=== PATIENT | male | born 1945 | race Caucasian/White ===

== ENCOUNTER 2020-03-09 13:06 | Outpatient (CLI) | payer MEDICARE, MEDICAID | END 2020-03-09 13:07 | disposition home or self-care (01) | LOC: LAB 13:06 | PROVIDERS: ATTEND Internal Medicine Endocrinology, Diabetes & Metabolism | DX: R74.8 Abnormal levels of other serum enzymes (principal) | CPT/HCPCS: 36415; 82977 ==

== ENCOUNTER 2020-04-15 13:02 | Outpatient (CLI) | payer MEDICARE, MEDICAID ==
[2020-04-15 13:16] LABS: HGB - HEMOGLOBIN 10.9 g/dL (14.0-18.0); MEAN CORPUSCULAR HEMOGLOBIN 30.9 pg (27.0-31.0); MEAN CORPUSCULAR HGB CONC 31.2 g/dL (32.0-36.0); MEAN CORPUSCULAR VOLUME 98.9 fL (80.0-94.0); MEAN PLATELET VOLUME 11.1 fL (7.4-11.4); RED BLOOD COUNT 3.53 10^6/uL (4.70-6.10); RED CELL DISTRIBUTION WIDTH 14.2 % (12.0-15.0); WHITE BLOOD COUNT 6.4 x10^3/uL (4.8-10.8)
[2020-04-15 13:31] LABS: CALCIUM 9.2 mg/dL (8.5-10.3); CREATININE 1.9 mg/dL (0.6-1.2); PHOSPHORUS 4.3 mg/dL (2.5-4.6)
== END 2020-04-15 13:03 | disposition home or self-care (01) ==
LOC: LAB 13:02
PROVIDERS: ATTEND Internal Medicine Nephrology
DX: D70.9 Neutropenia, unspecified (principal); E83.30 Disorder of phosphorus metabolism, unspecified; N25.81 Secondary hyperparathyroidism of renal origin; N05.9 Unspecified nephritic syndrome with unspecified morphologic changes
CPT/HCPCS: 36415; 80048; 83970; 84100; 85027

== ENCOUNTER 2021-01-13 13:50 | Outpatient (CLI) | payer MEDICARE, MEDICAID ==
[2021-01-13 18:12] LABS: ALBUMIN 3.6 g/dL (3.2-5.5); ALBUMIN/GLOBULIN RATIO 0.9 (1.0-2.2); CREATININE 1.9 mg/dL (0.6-1.2); POTASSIUM 4.9 mmol/L (3.5-5.0); TOTAL PROTEIN 7.4 g/dL (6.7-8.2)
== END 2021-01-13 13:51 | disposition home or self-care (01) ==
LOC: LAB.N 13:50
PROVIDERS: ATTEND Internal Medicine Nephrology
DX: N05.9 Unspecified nephritic syndrome with unspecified morphologic changes (principal)
CPT/HCPCS: 36415; 80048; 80053

== ENCOUNTER 2021-02-16 14:47 | Outpatient (CLI) | payer MEDICARE, MEDICAID ==
--- NOTE | 2021-02-16 16:05 | XRAY Report ---
PROCEDURE: Wrist 4 View LT INDICATIONS: L WRIST PX TECHNIQUE: 4 views of the wrist were acquired. COMPARISON: None. FINDINGS: No acute fracture. Scattered subchondral sclerosis and spurring. First CMC and triscaphe joint degen eration, mild to moderate. Soft tissues: No suspicious soft tissue calcifications. Scattered vascular calcifications are noted. IMPRESSION: Mild to moderate osteoarthritis as above. If the patient's pain or other symptoms persist, consider f urther evaluation with MRI. Reviewed by: Shawn Campos MD on 02/16/2021 4:03 PM PDT Approved by: Shawn Campos MD on 02/16/2021 4:03 PM PDT Station ID: [id number]
== END 2021-02-16 23:59 | disposition home or self-care (01) ==
LOC: DI.N 14:47
PROVIDERS: ATTEND Family Medicine
DX: M25.532 Pain in left wrist (principal); M19.032 Primary osteoarthritis, left wrist

== ENCOUNTER 2021-03-24 10:38 | Outpatient (CLI) | payer MEDICARE, MEDICAID ==
[2021-03-24 10:57] LABS: HCT - HEMATOCRIT 32.7 % (42.0-52.0); HGB - HEMOGLOBIN 10.5 g/dL (14.0-18.0); MEAN CORPUSCULAR HEMOGLOBIN 29.8 pg (27.0-31.0); MEAN CORPUSCULAR HGB CONC 32.1 g/dL (32.0-36.0); MEAN CORPUSCULAR VOLUME 92.9 fL (80.0-94.0); MEAN PLATELET VOLUME 10.2 fL (7.4-11.4); RED BLOOD COUNT 3.52 10^6/uL (4.70-6.10); RED CELL DISTRIBUTION WIDTH 16.9 % (12.0-15.0); WHITE BLOOD COUNT 7.7 x10^3/uL (4.8-10.8)
[2021-03-24 11:17] LABS: CALCIUM 9.4 mg/dL (8.5-10.3)
== END 2021-03-24 10:39 | disposition home or self-care (01) ==
LOC: LAB 10:38
PROVIDERS: ATTEND Internal Medicine Nephrology
DX: N05.9 Unspecified nephritic syndrome with unspecified morphologic changes (principal); D70.9 Neutropenia, unspecified; D63.1 Anemia in chronic kidney disease
CPT/HCPCS: 36415; 80048; 85027

== ENCOUNTER 2021-04-20 14:12 | Outpatient (CLI) | payer MEDICARE, MEDICAID ==
[2021-04-20 18:12] LABS: BASOPHILS % (AUTO) 0.7 %; EOSINOPHILS # (AUTO) 0.3 10^3/uL (0.0-0.7); EOSINOPHILS % (AUTO) 5.1 %; HCT - HEMATOCRIT 31.2 % (42.0-52.0); HGB - HEMOGLOBIN 9.6 g/dL (14.0-18.0); LYMPHOCYTES # (AUTO) 0.5 10^3/uL (1.5-3.5); LYMPHOCYTES % (AUTO) 9.4 %; MEAN CORPUSCULAR HEMOGLOBIN 29.4 pg (27.0-31.0); MEAN CORPUSCULAR HGB CONC 30.8 g/dL (32.0-36.0); MEAN CORPUSCULAR VOLUME 95.7 fL (80.0-94.0); MEAN PLATELET VOLUME 12.1 fL (7.4-11.4); MONOCYTES # (AUTO) 0.5 10^3/uL (0.0-1.0); MONOCYTES % (AUTO) 9.5 %; NEUTROPHILS # (AUTO) 4.2 10^3/uL (1.5-6.6); NEUTROPHILS % (AUTO) 74.9 %; PLT - PLATELET COUNT 174 10^3/uL (130-450); RED BLOOD COUNT 3.26 10^6/uL (4.70-6.10); RED CELL DISTRIBUTION WIDTH 15.7 % (12.0-15.0); WHITE BLOOD COUNT 5.7 x10^3/uL (4.8-10.8)
[2021-04-20 18:59] LABS: CREATININE 2.3 mg/dL (0.6-1.2)
== END 2021-04-20 14:13 | disposition home or self-care (01) ==
LOC: LAB.N 14:12
PROVIDERS: ATTEND Internal Medicine Nephrology
DX: D70.9 Neutropenia, unspecified (principal); D63.1 Anemia in chronic kidney disease; N05.9 Unspecified nephritic syndrome with unspecified morphologic changes; D50.0 Iron deficiency anemia secondary to blood loss (chronic)
CPT/HCPCS: 36415; 82565; 82728; 83540; 84466; 85025

== ENCOUNTER 2021-05-10 10:41 | Outpatient (CLI) | payer MEDICARE, MEDICAID ==
[2021-05-10] MEDS ORDERED: IOVERSOL 320 50 ML VIAL ONE (10:59)
[2021-05-10] MEDS ORDERED: IOVERSOL 320 50 ML VIAL PO ONE (12:09)
--- NOTE | 2021-05-10 13:56 | CT Report ---
PROCEDURE: Abdomen/Pelvis WO INDICATIONS: ABDOMINAL HERNIA TECHNIQUE: Noncontrast 5 mm thick sections acquired from the diaphragms to the symphysis. 5 mm coronal and sagi ttal reformats were then performed. For radiation dose reduction, the following was used: automated exposure control, adjustment of mA and/or kV according to patient size. COMPARISON: None. FINDINGS: Image quality: Excellent. ABDOMEN: Lung bases: Lung bases are clear. Four-chamber cardiomegaly. Coronary artery calcifications. Solid organs: Liver and spleen are normal in size. Gallbladder is unremarkable Pancreas is normal in contours. No adrenal nodules. Kidneys are normal in size, without hydronephrosis or nephrolithia sis. 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 Peritoneum and bowel: Unenhanced bowel loops demonstrate normal wall thickness and caliber. No free fluid or air. Incidental note is made of the presence of interposition of the colon between the abd ominal wall and liver. Nodes and vessels: No retroperitoneal or mesenteric adenopathy by size criteria. Aorta and inferior vena cava are normal in caliber. Miscellaneous: No ventral hernias. PELVIS: Genitourinary: Bladder wall thickness is normal. Prostate is enlarged. Miscellaneous: Large bilateral inguinal hernias, left greater than right. Left inguinal hernia contai ns nonobstructed colon. The right inguinal hernia contains fat. Penile prosthesis. Bones: No suspicious bony lesions. No vertebral body compression fractures. Lumbar degenerative ch ruth. Severe canal stenosis at L4-L5. IMPRESSION: 1. Large bilateral inguinal hernias, left greater than right. Left inguinal hernia contains colon. Th e right inguinal hernia is fat-containing. 2. Four-chamber cardiomegaly, coronary artery calcifications. 3. Enlarged prostate. 4. Severe canal stenosis at L4-L5. Reviewed by: Bernardo Casper MD on 05/10/2021 1:54 PM PST Approved by: Bernardo Casper MD on 05/10/2021 1:54 PM PST Station ID: [id number]
== END 2021-05-10 10:42 | disposition home or self-care (01) ==
LOC: DI 10:41
PROVIDERS: ATTEND Internal Medicine Nephrology
DX: K40.20 Bilateral inguinal hernia, without obstruction or gangrene, not specified as recurrent (principal); I25.10 Atherosclerotic heart disease of native coronary artery without angina pectoris; N40.0 Benign prostatic hyperplasia without lower urinary tract symptoms; M48.061 Spinal stenosis, lumbar region without neurogenic claudication

== ENCOUNTER 2021-09-08 13:28 | Outpatient (CLI) | payer MEDICARE, MEDICAID ==
[2021-09-08 18:22] LABS: HCT - HEMATOCRIT 31.4 % (42.0-52.0); HGB - HEMOGLOBIN 9.8 g/dL (14.0-18.0); MEAN CORPUSCULAR HEMOGLOBIN 29.3 pg (27.0-31.0); MEAN CORPUSCULAR HGB CONC 31.2 g/dL (32.0-36.0); MEAN CORPUSCULAR VOLUME 93.7 fL (80.0-94.0); MEAN PLATELET VOLUME 12.9 fL (7.4-11.4); RED BLOOD COUNT 3.35 10^6/uL (4.70-6.10); RED CELL DISTRIBUTION WIDTH 16.1 % (12.0-15.0)
== END 2021-09-08 13:29 | disposition home or self-care (01) ==
LOC: LAB.N 13:28
PROVIDERS: ATTEND Internal Medicine Nephrology
DX: N18.4 Chronic kidney disease, stage 4 (severe) (principal); D63.1 Anemia in chronic kidney disease
CPT/HCPCS: 36415; 80048; 85027

== ENCOUNTER 2021-09-22 14:19 | Outpatient (CLI) | payer MEDICARE, MEDICAID ==
--- NOTE | 2021-09-22 15:43 | XRAY Report ---
PROCEDURE: Chest 2 View X-Ray INDICATIONS: PRODUCTIVE COUGH TECHNIQUE: 2 view(s) of the chest. COMPARISON: None. FINDINGS: Surgical changes and devices: None. Lungs and pleura: There is trace blunting of the costophrenic angles. No consolidations. Mediastinum: Mediastinal contours are normal. Heart size is enlarged. Bones and chest wall: No suspicious bony abnormalities. Soft tissues appear unremarkable. IMPRESSION: Cardiomegaly without consolidation. Trace scarring versus effusions of the costophrenic angles bilaterally. Reviewed by: Sneha Whelan MD on 09/22/2021 3:42 PM PDT Approved by: Sneha Whelan MD on 09/22/2021 3:42 PM PDT Station ID: [id number]
== END 2021-09-22 23:59 | disposition home or self-care (01) ==
LOC: DI.N 14:19
PROVIDERS: ATTEND Family Medicine
DX: R05.9 Cough, unspecified (principal); I51.7 Cardiomegaly; R91.8 Other nonspecific abnormal finding of lung field

== ENCOUNTER 2021-09-22 14:56 | Outpatient (CLI) | payer MEDICARE, MEDICAID | END 2021-09-22 14:57 | disposition critical access hospital (66) | LOC: EMS 14:56 | DX: J18.9 Pneumonia, unspecified organism (principal); E11.65 Type 2 diabetes mellitus with hyperglycemia | CPT/HCPCS: A0425; A0429 ==

== ENCOUNTER 2021-09-22 15:19 | Emergency (ER) | payer MEDICARE, MEDICAID ==
--- OUTSIDE RECORDS SUMMARY | 2021-09-22 15:33 | EXTERNAL MEDICAL SUMMARY RPT | Continuity of Care Document ---
:1945 Author Organization [facility] Address [address] [place] [address] Phone Care Team Providers Name Role Phone M.D. Unavailable Unavailable Allergies No information. Encounters No information. Medications No information. Problems date description facility 20210922 Productive cough All 20210922 Other specified cough All 20210922 Other abnormal glucose All 20210922 Hyperglycemia, unspecified All 20210922 Hyperglycemia All 20210922 Cough All 20210922 CHEST 2 VIEW All Results test status date ordered by attending specimen jose rafael e blood_glucose_finger_s unknown 20210922 unknown unknown unknown tick blood_glucose_finger_s unknown 20210922 unknown unknown unknown tick facility observation status value reference units lab abnor mal line range code notes All blood_glucose unknown 535 unknown _[id number] unknow n unknown _finger_stick -7 All blood_glucose unknown 535 unknown _[id number] unknow n unknown _finger_stick Vital Signs date measurement value source 20210922 weight_standard 207 lb 20210922 weight_metric 93.89 kg 20210922 temperature_standard 98.7 F 20210922 temperature_metric 37.06 C 20210922 respiration_rate 18 /min 20210922 height_standard 70 in 20210922 height_metric 177.8 cm 20210922 heart_rate 89 /min 20210922 BP_systolic 132 mm[Hg] 20210922 BP_diastolic 84 mm[Hg] 20210922 BMI 29.81 kg/m2
--- NOTE | 2021-09-22 15:44 | ED Physician Documentation ---
PD HPI DYSPNEA - Stated complaint Stated Complaint: COUGH/WEKANESS - Chief complaint Chief Complaint: Resp - History obtained from History obtained from: Patient - Additional information Additional information: 76-year-old gentleman presents referred from urgent care for cough. His main complaint is actually itching. Says that he has been itching for years. Is worse in the mornings. Has tried a number of topical medications without relief. He also has a chronic cough which he thinks may be related to sleep apnea. States the cough became more hacking about 3 to 4 weeks ago and is nonproductive. Went to urgent care today where he was noted to have elevated blood sugars. He has a history of diabetes but is not currently treating his diabetes. Also had a chest x-ray which per reports the urgent care physician thought might be positive for right lower lobe infiltrate. Denies fevers or chills. He is chronically fatigued. Review of labs show that his blood sugars always elevated, and his renal function is slowly going downhill. He is followed by RUPERT Saunders the delivery stock clerk. Review of Systems Ten Systems: 10 systems reviewed and negative Constitutional: reports: Fatigue. denies: Fever, Chills Nose: denies: Rhinorrhea / runny nose, Congestion Throat: denies: Dental pain / toothache, Oral lesions / sores Cardiac: denies: Chest pain / pressure, Palpitations Respiratory: reports: Cough. denies: Dyspnea PD PAST MEDICAL HISTORY - Present Medications Home Medications: Ambulatory Orders Medication Instructions Recorded Confirmed Insulin Glargine [Lantus Solostar] 10 unit SUBQ DAILY #1 ahfu 09/22/21 - Allergies Allergies/Adverse Reactions: Allergies Allergy/AdvReac Type Severity Reaction Status Date / Time lisinopril Allergy Unknown Verified 09/22/21 15:31 Macrolide Antibiotics Allergy Unknown Verified 09/22/21 15:31 Macrolide Immunosuppressant Allergy Unknown Verified 09/22/21 15:31 metformin Allergy Unknown Verified 09/22/21 15:31 niacin Allergy Unknown Verified 09/22/21 15:31 rosuvastatin [From Crestor] Allergy Unknown Verified 09/22/21 15:31 tamsulosin [From Flomax] Allergy Unknown Verified 09/22/21 15:31 PD ED PE NORMAL - Vitals Vital signs reviewed: Yes - General General: Alert and oriented X 3, No acute distress - HEENT HEENT: PERRL, EOMI - Neck Neck: Supple, no meningeal sign, No bony TTP - Cardiac Cardiac: RRR, Other (4 out of 6 decrescendo holosystolic murmur heard best at the left lower sternal border) - Respiratory Respiratory: No respiratory distress, Clear bilaterally - Abdomen Abdomen: Normal bowel sounds, Soft, Non tender - Back Back: No CVA TTP, No spinal TTP - Derm Derm: Other (Excoriations especially on the forearms) - Extremities Extremities: No calf tenderness / cord, Other (2+ B pitting edema) - Neuro Neuro: Alert and oriented X 3 (but slightly confused), Normal speech Results - Vitals Vitals: Vital Signs - 24 hr 09/22/21 09/22/21 09/22/21 15:25 16:03 16:30 Temperature 37.0 C Heart Rate 84 82 83 Respiratory 19 18 19 Rate Blood Pressure 124/74 131/76 H 120/72 O2 Saturation 100 99 99 09/22/21 09/22/21 17:00 17:30 Temperature Heart Rate 84 84 Respiratory 20 21 Rate Blood Pressure 119/75 122/77 O2 Saturation 98 99 Oxygen O2 Source Room air - Labs Labs: Laboratory Tests 09/22/21 09/22/21 09/22/21 15:40 15:40 15:49 WBC 6.5 RBC 3.28 L Hgb 9.5 L Hct 30.1 L MCV 91.8 MCH 29.0 MCHC 31.6 L RDW 16.1 H Plt Count 157 MPV 12.3 H Neut # (Auto) 5.5 Lymph # (Auto) 0.4 L [place] # (Auto) 0.5 Eos # (Auto) 0.1 Baso # (Auto) 0.0 Absolute Nucleated RBC 0.00 Nucleated RBC % 0.0 Sodium 128 L Potassium 4.1 Chloride 91 L Carbon Dioxide 24 Anion Gap 13.0 BUN 98 H* Creatinine 3.0 H Estimated GFR (MDRD) 21 L Glucose 523 H* Lactic Acid 1.9 Calcium 8.7 Total Bilirubin 1.1 H AST 23 ALT 16 Alkaline Phosphatase 98 Total Protein 6.4 L Albumin 3.2 Globulin 3.2 Albumin/Globulin Ratio 1.0 - Rads (name of study) 2v cxr Radiology: EMP read contemporaneously (Chest x-ray from earlier in the day showing cardiomegaly and trace scarring or effusions of the costophrenic angles) PD MEDICAL DECISION MAKING - ED course ED course: 76-year-old gentleman presents referred from urgent care with basically all chronic complaints. He is noted to be in chronic renal failure and his blood sugar although very elevated is not acutely elevated, it was 515 2 weeks ago and in March it was 322. He was creatinine has slowly been rising and he is on several diuretics. I spoke with his delivery stock clerk, RUPERT Saunders. He put in a hospice referral for the patient last week as the patient is still fluid overloaded but his uremia is causing his itching. He does not feel there is anything more that can be done for his worsening renal function and expects a decline culminating in . After writing the discharge orders but prior to the patient actually being discharged I discussed the case by phone with Dr. Mendoza on-call for his primary care physician Erika Dwyer she agreed with the discharge plan will have the PCP follow-up with the patient. Departure - Departure Disposition: Home, Self Care Clinical Impression: CKD (chronic kidney disease) stage 5, GFR less than 15 ml/min Uncontrolled diabetes mellitus Qualifiers: Diabetes mellitus type: type 2 Glycemic state: with hyperglycemia Qualified Code(s): E11.65 - Type 2 diabetes mellitus with hyperglycemia Condition: Good Record reviewed to determine appropriate education?: Yes Instructions: ED Hyperglycemia New Susp Diabetes Prescriptions: Insulin Glargine [Lantus Solostar] 10 unit SUBQ DAILY #1 ahfu Comments: You were seen today for the itching which is due to your kidney failure. Your delivery stock clerk does not feel there is much left to offer you for this. He also have elevated blood sugars although it looks like they are chronically elevated. You probably need to be back on medication for this. I am starting a low-dose of Lantus which is a long-acting insulin. I am starting it at a low dose, you will likely need higher, but it should be titrated up in consultation with your physician. I was unable to reach Dr. Lazaro, so call his office tomorrow for further evaluation and treatment. Dr. Saunders is recommending hospice. I will leave that to you to discuss with him and your PCP.
[2021-09-22 15:57] LABS: BASOPHILS % (AUTO) 0.5 %; EOSINOPHILS # (AUTO) 0.1 10^3/uL (0.0-0.7); EOSINOPHILS % (AUTO) 1.4 %; HCT - HEMATOCRIT 30.1 % (42.0-52.0); HGB - HEMOGLOBIN 9.5 g/dL (14.0-18.0); LYMPHOCYTES # (AUTO) 0.4 10^3/uL (1.5-3.5); LYMPHOCYTES % (AUTO) 5.7 %; MEAN CORPUSCULAR HGB CONC 31.6 g/dL (32.0-36.0); MEAN CORPUSCULAR VOLUME 91.8 fL (80.0-94.0); MEAN PLATELET VOLUME 12.3 fL (7.4-11.4); MONOCYTES # (AUTO) 0.5 10^3/uL (0.0-1.0); NEUTROPHILS # (AUTO) 5.5 10^3/uL (1.5-6.6); NEUTROPHILS % (AUTO) 83.9 %; PLT - PLATELET COUNT 157 10^3/uL (130-450); RED BLOOD COUNT 3.28 10^6/uL (4.70-6.10); RED CELL DISTRIBUTION WIDTH 16.1 % (12.0-15.0); WHITE BLOOD COUNT 6.5 x10^3/uL (4.8-10.8)
[2021-09-22] MEDS: INSULIN REGULAR HUMAN 100 UNIT/1 ML 10 ML MDV IVP STA (15:58)
[2021-09-22] MEDS: DOXEPIN 10 MG CAPSULE PO STA (15:58)
[2021-09-22 16:16] LABS: ALBUMIN 3.2 g/dL (3.2-5.5); BILIRUBIN,TOTAL 1.1 mg/dL (0.2-1.0); CALCIUM 8.7 mg/dL (8.5-10.3); POTASSIUM 4.1 mmol/L (3.5-5.0); TOTAL PROTEIN 6.4 g/dL (6.7-8.2)
[2021-09-22] MEDS: MORPHINE 2 MG/ML CARPUJECT IVP STA (17:38)
[2021-09-22 18:33] VITALS: BP 115/82
== END 2021-09-22 18:51 | disposition home or self-care (01) ==
LOC: EDUNIT# → ED 15:19
DX: E11.65 Type 2 diabetes mellitus with hyperglycemia (principal); E11.22 Type 2 diabetes mellitus with diabetic chronic kidney disease; N18.5 Chronic kidney disease, stage 5; Z79.84 Long term (current) use of oral hypoglycemic drugs; R05.9 Cough, unspecified; I51.7 Cardiomegaly; R91.8 Other nonspecific abnormal finding of lung field
CPT/HCPCS: 36415; 71046; 80053; 83605; 85025; 87040; 99283; 99284; A9270

== ENCOUNTER 2021-09-22 18:53 | Outpatient (CLI) | payer MEDICARE, MEDICAID | END 2021-09-22 18:54 | disposition home or self-care (01) | LOC: EMS 18:53 | PROVIDERS: ATTEND Emergency Medicine | DX: E11.65 Type 2 diabetes mellitus with hyperglycemia (principal); J18.9 Pneumonia, unspecified organism; R41.0 Disorientation, unspecified; F03.90 Unspecified dementia, unspecified severity, without behavioral disturbance, psychotic disturbance, mood disturbance, and anxiety | CPT/HCPCS: A0425; A0428 ==

== ENCOUNTER 2021-11-11 06:47 | Outpatient (CLI) | payer MEDICARE, MEDICAID | END 2021-11-11 06:48 | disposition E | LOC: EMS 06:47 | DX: I46.9 Cardiac arrest, cause unspecified (principal) | CPT/HCPCS: A0425; A0428 ==